=== PATIENT | female | born 1975 | race Caucasian/White ===

== ENCOUNTER 2017-01-14 18:59 | Emergency (ER) | payer OTHER ==
[~2017-01-14] VITALS: Ht 170.2 cm; Wt 81.8 kg
[~2017-01-14 18:59] MED LIST: DSS100 PO; HYDR1TAB91 PO; IBUP-1152 PO; IRON1TAB96 PO
[2017-01-14 19:19] VITALS: BP 148/82; PULSE 84; RESP 14; O2SAT 99
[2017-01-14 19:23] LABS: BASOPHILS % (AUTO) 0.3 % (0-3); EOSINOPHILS % (AUTO) 1.4 % (0-5); Platelet Count 316 bil/L (150-400)
[2017-01-14] MEDS ORDERED: Ondansetron 2 mg/mL 2 mL Inj IVPUSH PRN (19:30)
[2017-01-14 19:37] LABS: TROPONIN T < 0.010 ug/L (0.0-0.011)
--- NOTE | 2017-01-14 19:58 | ED.REPORT ---
HPI-Chest Pain 40 and Over Date of Service Jan 14, 2017 ED Provider: Akira Pond DO Patient is a healthy 41 year old female who presents to the ED via EMS complaining of chest pressure onset this morning. Associated symptoms include intermittent, sharp chest pain and SOB. Her pain is not affected by activity or eating but is exacerbated by laying down flat. She denies edema, cough, fever, chills, and abdominal pain. She was given fentanyl by EMS en route. Nursing Notes Stated Complaint: CHEST PAIN Chief Complaint: Chest Pain Nursing Notes Reviewed: Yes Allergies: Coded Allergies: No Known Allergies (Unverified Allergy, 05/27/12) Scheduled Docusate Sod-Expunged Drug, Do Not Renew! (Docusate Sod-Expunged Drug, Do Not Renew!) 100 Mg Capsule 100 MG PO BID Iron &Iron Asp Gly/Fa/Mv,Min38 (Iron Tablet) 1 Each Tablet 1 EACH PO DAILY Scheduled PRN Hydrocod/APAP-Expunged, Do Not Renew! (Hydrocod/APAP-Expunged, Do Not Renew!) 1 Each Tablet 1-2 EA PO Q4-6H PRN PRN IBUPROFEN-Expunged Drug, Do Not Renew! (IBUPROFEN-Expunged Drug, Do Not Renew!) 800 Mg Tablet 600 MG PO Q6 PRN PRN General Time Seen by MD: 19:25 Chief Complaint Chest pressure Hx Obtained From: Patient Arrived By: Ambulance Sudden in Onset?: Yes Onset Occurred: 13 - 16 hours ago Symptom Duration: Since onset Similar Sx Previous: No Past Medical History Past Medical History Healthy Past Surgical History Kidney Surgery Family History Grandmother of [place]. Smoking History Current Every Day Smoker Review of Systems Constitutional: Denies: Chills, Fever Respiratory: Reports: Shortness of breath, Denies: Non-productive cough Cardiovascular: Reports: Chest pain, Denies: Edema GI: Denies: Abdominal pain Complete sys rev & neg: except as marked. Physical Exam Initial Vital Signs Vital Signs (First) Date Time Temp Pulse Resp B/P Pulse Ox O2 Delivery O2 Flow Rate FiO2 01/14/17 19:19 36.9 84 14 148/82 99 Room Air Initial VS: Reviewed Head / Eyes: Atraumatic, Normocephalic Neck: Full range of motion Skin: Warm, Dry Neurologic: Alert, Oriented, Nonfocal Psychiatric: Mood/affect normal, Behavior normal, Normal thought content General/Constitutional: Awake, Alert, Well developed Appearance / Presentation: Positive: Obese Respiratory / Chest: Breath sounds NL, Breath sounds = bilat, No respiratory distress Chest pain reproducable with palpation Cardiovascular: Heart rate NL, Regular rhythm, Heart sounds NL Abdomen: Soft, Non-tender Interpretation & Diagnostics Lab Results Interpretation Result Diagram: 01/14/17191801/14/171918 Test 01/14/17 19:10 01/14/17 19:19 Hold Purple Top Tube Received (Received) Hold Blue Top Tube Received (Received) Hold Red Top Tube Received (Received) Hold [place] Top Tube Received (Received) White Blood Count 8.6th/mm3 (3.8-10.1) Red Blood Count 4.62mil/mm3 (3.90-5.20) Hemoglobin 12.0g/dL (12.0-15.6) Hematocrit 37.4% (35.0-46.0) Mean Corpuscular Volume 81.0fL (81-100) Mean Corpuscular Hemoglobin 26.0pg (27.0-35.0) Mean Corpuscular Hemoglobin Concent 32.1% (32.0-37.0) Red Cell Distribution Width 16.5% (12.3-15.4) Platelet Count 316bil/L (150-400) Neutrophils (%) (Auto) 61.0% (40-74) Lymphocytes (%) (Auto) 30.1% (14-46) Monocytes (%) (Auto) 7.0% (4-12) Eosinophils (%) (Auto) 1.4% (0-5) Basophils (%) (Auto) 0.3% (0-3) Sodium Level 133mEq/L (134-144) Potassium Level 3.7mEq/L (3.5-5.2) Chloride Level 93mEq/L (97-108) Carbon Dioxide Level 23mmol/L (18-29) Blood Urea Nitrogen 12mg/dL (6-24) Creatinine 0.70mg/dL (0.57-1.00) Estimat Glomerular Filtration Rate 131mL/min (>59) Glucose Level 93mg/dL (60-99) Calcium Level 9.0mg/dL (8.5-10.1) Magnesium Level 2.0mg/dL (1.6-2.6) Total Bilirubin 0.2mg/dL (0.0-1.2) Aspartate Amino Transf (AST/SGOT) 27U/L (0-50) Alanine Aminotransferase (ALT/SGPT) 16U/L (0-32) Alkaline Phosphatase 92U/L (25-150) Troponin T < 0.010ug/L (0.0-0.011) Total Protein 8.3g/dL (6.4-8.4) Albumin 4.5g/dL (3.4-5.0) ECG Interpretation ECG Interpretation: Sinus rate 91 no abnormalities Time: 19:02 Interpreted by: ED physician X-Ray Chest Interpretation Chest Xray Interpretation: IMPRESSION: No acute cardiopulmonary disease. Dictated by: Natalya Gooden M.D. on 01/14/2017 at 20:56 Approved by: Natalya Gooden M.D. on 01/14/2017 at 20:56 View: Portable, 1 view Interpretation / Wet Read by: Interpret - Radiologist Re-Eval/Medical Decision Med Decision/Clinical Course After several hours of ongoing continuous chest pain her troponin, EKG and chest x-ray are unremarkable, her chest wall seems to be tender on palpation. This does not seem to be acute coronary syndrome at this time. She is instructed to follow-up with her primary care doctor for ongoing cardiac evaluation, return precautions given. Time of Eval: 20:39 Re-Evaluation/Progress Note: Discussed lab results, imaging results, and plan for discharge. Patient understands and agrees with plan. All questions addressed at this time. Counseled Regarding: Diagnosis, Lab results, Need for follow-up, When/why to return to ED Discharge & Departure Primary Impression: Nonspecific chest pain Disposition: Home Discharge Condition All VS Reviewed: Yes Condition: Improved Additional Instructions: Thank you for entrusting us with your care. Your lab and imaging results are reassuring. Please follow up with your primary physician. You may consider scheduling a stress test. You may take 81 mg of Aspirin a day until you can see your physician. Return to the Emergency department if you develop new or worsening symptoms. Referrals: Naon Sullivan PA-C (PCP) Scribe Attestation Portions of this note were transcribed by Cyndee Winslow. IDr. Pond personally performed the history, physical exam and medical decision-making; I reviewed and confirmed the accuracy of the information in the transcribed note. Signed by: Cyndee Winslow 01/14/2017, 2101 copies to: Nano Sullivan PA-C, Timothy S DO Jan 14, 2017 19:58 CYNDEE WINSLOW Jan 14, 2017 20:07
[2017-01-14] MEDS ORDERED: LidocaineVisc 2%:Antacid 1:1 10 mL Syringe PO ONE (20:20)
[2017-01-14] MEDS ORDERED: Ketorolac 15 mg/mL Inj IVPUSH PRN (20:45)
[2017-01-14 20:48] VITALS: BP 128/80; PULSE 80; RESP 16; O2SAT 98
--- NOTE | 2017-01-14 20:58 | DRSVH ---
PROCEDURE: X-RAY CHEST ONE VIEW, PORTABLE ([id number]) INDICATIONS: CHEST PAIN TECHNIQUE: One view of the chest was acquired. COMPARISON: None. FINDINGS: Surgical changes and devices: None. Lungs and pleura: No pleural effusions or pneumothorax. Lungs are clear. Mediastinum: Mediastinal contours appear normal. Heart size is normal. Bones and chest wall: No suspicious bony lesions. Overlying soft tissues appear unremarkable. IMPRESSION: No acute cardiopulmonary disease. Dictated by: Natalya Gooden M.D. on 01/14/2017 at 20:56 Approved by: Natalya Gooden M.D. on 01/14/2017 at 20:56
[2017-01-14 21:45] VITALS: BP 143/89; PULSE 81; RESP 16; O2SAT 99
== END 2017-01-14 21:46 | disposition home or self-care (01) ==
LOC: SED 18:59 → EDBD 18:59 → SED 21:46
DX: R07.89 Other chest pain (principal); R06.02 Shortness of breath; F17.200 Nicotine dependence, unspecified, uncomplicated
CPT/HCPCS: 36415; 71010; 80053; 83735; 84484; 85025; 93005; 96374; 96375; 99285; J1885; J2270; J2405

== ENCOUNTER 2017-01-17 15:54 | Emergency (ER) | payer OTHER ==
[~2017-01-17] VITALS: Ht 170.2 cm; Wt 81.8 kg
[2017-01-17 15:56] VITALS: BP 159/95; PULSE 91; RESP 20; O2SAT 100
[2017-01-17 16:35] LABS: BASOPHILS % (AUTO) 0.1 % (0-3); EOSINOPHILS % (AUTO) 1.2 % (0-5); MONOCYTES % (AUTO) 7.3 % (4-12); Mean Corpuscular Hemoglobin 25.3 pg (27.0-35.0); Mean Corpuscular Volume 80.1 fL (81-100); Platelet Count 291 bil/L (150-400)
--- NOTE | 2017-01-17 16:54 | ED.REPORT ---
HPI-Chest Pain 40 and Over Date of Service Jan 17, 2017 ED Provider: Audrey Quintero History of Present Illness: Seen Thursday, quit smoking on Thursday, given morhine, GI cocktail and nitro, maybe some help. taking ASA daily.returns today with chest pain and feels a hard time catching her breath 4/10 gold is primary care normally healthy. Nursing Notes Stated Complaint: CHEST PAIN Chief Complaint: Chest Pain Nursing Notes Reviewed: Yes Allergies: Coded Allergies: No Known Allergies (Unverified Allergy, Unknown, 01/17/17) Scheduled Docusate Sod-Expunged Drug, Do Not Renew! (Docusate Sod-Expunged Drug, Do Not Renew!) 100 Mg Capsule 100 MG PO BID Iron &Iron Asp Gly/Fa/Mv,Min38 (Iron Tablet) 1 Each Tablet 1 EACH PO DAILY Scheduled PRN Hydrocod/APAP-Expunged, Do Not Renew! (Hydrocod/APAP-Expunged, Do Not Renew!) 1 Each Tablet 1-2 EA PO Q4-6H PRN PRN IBUPROFEN-Expunged Drug, Do Not Renew! (IBUPROFEN-Expunged Drug, Do Not Renew!) 800 Mg Tablet 600 MG PO Q6 PRN PRN General Time Seen by MD: 16:53 Chief Complaint Chest pain Hx Obtained From: Patient Sudden in Onset?: No Risk Factors Risk Notes: patient with no risk factors, perc out. Well's Criteria for PE Well's PE Score: 0-2 pts (low risk 3.6%) Past Medical History Past Medical History Healthy Denies: Asthma, Diabetes mellitus, Hypertension Past Surgical History Kidney Surgery , cyst on foot removed, d and c Family History Grandmother of [place]. Smoking History Current Every Day Smoker (was smoking a pack a day for 25 years states quit 01/17) Social History Alcohol Use: "Social" Drug Use: Denies drug use Occupation single lives with boyfriend work at [employer] 01/17/2017 Ambulatory Status Independent Review of Systems Basic Review of Systems Eyes: Vision NL, No discharge : No dysuria, No frequency Allergy / Immune: No allergy Physical Exam Initial Vital Signs Vital Signs (First) Date Time Temp Pulse Resp B/P Pulse Ox O2 Delivery O2 Flow Rate FiO2 01/17/17 15:56 36.8 91 20 159/95 100 Room Air Initial VS: Reviewed, Vital signs normal Head / Eyes: Atraumatic, Normocephalic, PERRL ENT: Mucous membranes moist, Conjunctiva normal, No scleral icterus Neck: Supple, Non-tender, Full range of motion Back: No CVA tenderness Lymphatic: No lymphadenopathy Extremities: Vascular intact, Neuro intact, No swelling, No tenderness Skin: Warm, Dry, No cyanosis Neurologic: Alert, Oriented, Nonfocal Psychiatric: Mood/affect normal, Behavior normal, Normal thought content General/Constitutional: Awake, Alert, No acute distress, Well appearing, Well developed, Well hydrated breath sounds decreased mid to upper lungs bilateral, no wheezing noted Cardiovascular: Heart rate NL, Regular rhythm, Heart sounds NL, No gallop Abdomen: Atraumatic, Soft, Non-tender Interpretation & Diagnostics Lab Results Interpretation Result Diagram: 01/17/17 1627 01/17/17 1627 Test 01/17/17 16:27 01/17/17 16:36 White Blood Count 7.5th/mm3 (3.8-10.1) Red Blood Count 4.47mil/mm3 (3.90-5.20) Hemoglobin 11.3g/dL (12.0-15.6) Hematocrit 35.8% (35.0-46.0) Mean Corpuscular Volume 80.1fL (81-100) Mean Corpuscular Hemoglobin 25.3pg (27.0-35.0) Mean Corpuscular Hemoglobin Concent 31.6% (32.0-37.0) Red Cell Distribution Width 16.6% (12.3-15.4) Platelet Count 291bil/L (150-400) Neutrophils (%) (Auto) 60.0% (40-74) Lymphocytes (%) (Auto) 31.3% (14-46) Monocytes (%) (Auto) 7.3% (4-12) Eosinophils (%) (Auto) 1.2% (0-5) Basophils (%) (Auto) 0.1% (0-3) Sodium Level 135mEq/L (134-144) Potassium Level 4.0mEq/L (3.5-5.2) Chloride Level 98mEq/L (97-108) Carbon Dioxide Level 22mmol/L (18-29) Blood Urea Nitrogen 10mg/dL (6-24) Creatinine 0.64mg/dL (0.57-1.00) Estimat Glomerular Filtration Rate 146mL/min (>59) Glucose Level 96mg/dL (60-99) Calcium Level 9.0mg/dL (8.5-10.1) Magnesium Level 2.0mg/dL (1.6-2.6) Total Bilirubin 0.3mg/dL (0.0-1.2) Aspartate Amino Transf (AST/SGOT) 30U/L (0-50) Alanine Aminotransferase (ALT/SGPT) 22U/L (0-32) Alkaline Phosphatase 82U/L (25-150) Troponin T < 0.010ug/L (0.0-0.011) Total Protein 7.9g/dL (6.4-8.4) Albumin 4.4g/dL (3.4-5.0) Hold Urine Received (Received) Lab Results Interpretation: Normal EKG X-Ray Chest Interpretation Chest Xray Interpretation: TECHNIQUE: One view of the chest was acquired. COMPARISON: [facility], , XR CHEST 1VW (PORTABLE), 01/14/2017, 19:46. FINDINGS: Surgical changes and devices: None. Lungs and pleura: No pleural effusions or pneumothorax. Lungs are clear. Mediastinum: Mediastinal contours appear normal. Heart size is normal. Bones and chest wall: No suspicious bony lesions. Overlying soft tissues appear unremarkable. IMPRESSION: Normal for age, source of chest pain is not found. Re-Eval/Medical Decision Med Decision/Clinical Course 41 year old female returns with continued chest pain and now with feeling short of breath. Patient seen 2 days ago here. Chest x-ray is negative. EKG is normal, labs are normal. Patient provided duo neb. REporting chest pain resolved as well as the sob after neb. No sign of pneumonia, or asthma at this time Discharge & Departure Primary Impression: Non-cardiac chest pain Disposition: Home Additional Instructions: Your labs are normal. Your chest x-ray and EKG are normal. You have had a dramatic improvement in your air movement after the neb. Continue with the prednisone 60 mg daily for 2 more days. Take pantroprazole with this medication. You are being provided a prescription for duoneb. Use this every 4 hours as needed. REturn with any concerns. Referrals: Nano Sullivan PA-C (PCP) EDSupervising Provider for APC: Shalom Forrester MD copies to: Nano Sullivan PA-C, Sue ARNP Jan 17, 2017 16:54
--- NOTE | 2017-01-17 17:03 | DRSVH ---
PROCEDURE: X-RAY CHEST ONE VIEW, PORTABLE ([id number]) INDICATIONS: pain TECHNIQUE: One view of the chest was acquired. COMPARISON: [facility], CR, XR CHEST 1VW (PORTABLE), 01/14/2017, 19:46. FINDINGS: Surgical changes and devices: None. Lungs and pleura: No pleural effusions or pneumothorax. Lungs are clear. Mediastinum: Mediastinal contours appear normal. Heart size is normal. Bones and chest wall: No suspicious bony lesions. Overlying soft tissues appear unremarkable. IMPRESSION: Normal for age, source of chest pain is not found. Dictated by: Mauricio Farr M.D. on 01/17/2017 at 17:01 Approved by: Mauricio Farr M.D. on 01/17/2017 at 17:02
[2017-01-17 17:05] LABS: TROPONIN T < 0.010 ug/L (0.0-0.011)
[2017-01-17] MEDS ORDERED: Albuterol-Ipratropium 3 mL Inhalation Solution NEB ONE (17:05)
[2017-01-17] MEDS ORDERED: predniSONE 20 mg Tablet PO ONE (17:15)
[2017-01-17] MEDS ORDERED: Pantoprazole 40 mg ER24 Tablet PO ONE (17:15)
[2017-01-17 17:23] VITALS: PULSE 80; RESP 14; O2SAT 100
[2017-01-17 18:39] VITALS: BP 141/67; PULSE 78; RESP 18; O2SAT 98
== END 2017-01-17 18:40 | disposition home or self-care (01) ==
LOC: SED 15:57
DX: R07.89 Other chest pain (principal); R06.02 Shortness of breath; F17.200 Nicotine dependence, unspecified, uncomplicated; Z79.82 Long term (current) use of aspirin
CPT/HCPCS: 36415; 71010; 80053; 81025; 82948; 83735; 84484; 85025; 93005; 94664; 99285; J7620